=== PATIENT | female | born 1985 | race American Indian/Alaskan Native ===

== ENCOUNTER 2017-06-03 14:45 | Emergency (ER) | payer MEDICARE ==
[2017-06-03 15:07] VITALS: BP 133/91
--- NOTE | 2017-06-03 16:51 | Emergency Department Report ---
HPI - General Chief Complaint: Dental/Oral Time Seen by Provider: 06/03/17 16:43 - HPI HPI: This is a 31-year-old female here complaining of right upper back tooth pain 8 on a 10 that is throbbing and achy. Denies any facial swelling. Over-the- counter pain medication does not help. Denies any fever or chills. Denies any sore throat, difficulty swallowing, drooling or cyanosis. Patient says she has an appointment at a dental clinic on June 28 in [place] but she just couldn' t wait. Taking [id number] medication for pain that helped a little but doesn't take pain away. Pain worse with eating . Denies any nasal congestion, coughing or shortness of breath. ED Past Medical Hx - Past Medical History Previous Medical History?: Yes Hx Psychiatric Treatment: Yes (schizophrenia) - Surgical History Past Surgical History?: Yes Additional Surgical History: Left ankle surgery - Family History Family history: hypertension - Social History Smoking Status: Current Some Day Smoker Substance Use Type: Alcohol, Marijuana, Prescribed - Medications Home Medications: Home Medications Medication Instructions Recorded Confirmed Last Taken Type Benztropine [Cogentin] 1 mg PO HS 06/19/13 06/19/13 06/18/13 History Haloperidol [Haldol] 5 mg PO HS 06/19/13 06/19/13 06/19/13 History Ziprasidone [Geodon] 20 mg PO HS 06/19/13 06/19/13 06/18/13 History carBAMazepine [TEGretol] 200 mg PO HS 06/19/13 06/19/13 06/19/13 History LORazepam [Ativan] 1 mg PO TID PRN #5 tablet 06/20/13 Unknown Rx Acetaminophen/Codeine [Tylenol 1 tab PO Q6H PRN #12 tab 06/03/17 Unknown Rx /Codeine # 3 tab] Ibuprofen [Motrin] 600 mg PO Q8H PRN #15 tablet 06/03/17 Unknown Rx Penicillin V Potassium 500 mg PO Q8H 10 Days #30 tablet 06/03/17 Unknown Rx ED Review of Systems ROS: Stated complaint: TOOTHACHE Other details as noted in HPI Comment: All other systems reviewed and negative Constitutional: no symptoms reported Eyes: denies: eye pain, eye discharge ENT: dental pain. denies: ear pain, throat pain, epistaxis, congestion Respiratory: no symptoms reported Cardiovascular: denies: chest pain, palpitations, dyspnea on exertion, edema, syncope, paroxysmal nocturnal dyspnea Gastrointestinal: denies: abdominal pain, nausea, vomiting, diarrhea, constipation, hematemesis, melena, hematochezia Musculoskeletal: denies: back pain, joint swelling, arthralgia, myalgia Skin: denies: rash Neurological: denies: headache Physical Exam - Physical Exam Vital Signs: Vital Signs 06/03/17 15:04 Temperature 98.7 F Pulse Rate 113 H Respiratory 20 Rate Blood Pressure 133/91 O2 Sat by Pulse 95 Oximetry Vital Signs 06/03/17 06/03/17 15:04 17:14 Temperature 98.7 F Pulse Rate 113 H 98 H Respiratory 20 Rate Blood Pressure 133/91 O2 Sat by Pulse 95 Oximetry General: This is a 31-year-old female well-nourished well-developed distress. Physical Exam: Head: Normocephalic atraumatic Ears:BIateral TM pearly emerson. Red EAC with normal exam. No mastoid bone tenderness. Mouth: Moist, no pharyngeal erythema or exudate . No tonsillar erythema or exudate. UVULA midline and oral airways patent. No peritonsillar abscess. Mild gingivitis with some dental caries. #1 tooth with whole without any pulp exposure. Positive tenderness or surrounding tooth #1 without any swelling. Neck: Nontender to palpate, supple, normal range of motion. No adenopathy. No c- spine tenderness. Nose: Bilateral nasal mucosa normal. Maxillary and frontal sinuses non-tender to palpate. Eyes: Bilateral Sclerae and conjunctiva without injection. Bilateral pupils equal and reactive to light. Bilateral lids are normal. Normal accommodation.BEOMI Lungs: Clear to auscultate bilaterally, no rhonchi wheezes or rales. Normal work of breathing and no chest wall tenderness CV: S1, S2. Regular rate and rhythm negative murmur. Capillary refill is less than 3 seconds Skin: Clean dry and intact, no rashes or lesions Psych: Normal mood and behavior ED Course Vital Signs 06/03/17 15:04 Temperature 98.7 F Pulse Rate 113 H Respiratory 20 Rate Blood Pressure 133/91 O2 Sat by Pulse 95 Oximetry Vital Signs 06/03/17 06/03/17 15:04 17:14 Temperature 98.7 F Pulse Rate 113 H 98 H Respiratory 20 Rate Blood Pressure 133/91 O2 Sat by Pulse 95 Oximetry - Reevaluation(s) Reevaluation #1: 06/03/17 17:21 Patient received Motrin 800 mg emergency room for pain. ED Medical Decision Making - Medical Decision Making ED course: She here complaining of toothache to the right upper back tooth and she says she has a dental appointment in June but her pain is worse today and not working with [id number] pain medication. Physical findings for dental caries, hold to tooth #1 with out any pulp exposure, cavities and gingivitis. I discussed the patient diagnosis and treatment plan and she voiced understanding. I discussed with her that she needs to call [facility] dental clinic in the morning to schedule an appointment since she cannot get in with her dentist for one month. Patient was given Motrin 8 mg by mouth 1 and discharged home with prescription for Tylenol 3, Motrin and penicillin V. Critical care attestation.: If time is entered above; I have spent that time in minutes in the direct care of this critically ill patient, excluding procedure time. ED Disposition Clinical Impression: Toothache, Gingivitis, acute, Dental caries Disposition: [id number] TO HOME OR SELFCARE Is pt being admited?: No Does the pt Need Aspirin: No Condition: Stable Instructions: Gingivitis (ED), Dental Caries (ED), Toothache (ED) Additional Instructions: Please do not drive or operate heavy machinery while taking Tylenol No. 3 as this medication causes drowsiness If he cannot get in with your dentist this week, please see referral to [facility] dental clinic .please call and schedule an appointment for follow-up visit for later this week. Take penicillin V for infection. Prescriptions: Acetaminophen/Codeine [Tylenol /Codeine # 3 tab] 1 tab PO Q6H PRN #12 tab PRN Reason: Pain, Moderate (4-6) Ibuprofen [Motrin] 600 mg PO Q8H PRN #15 tablet PRN Reason: Pain Penicillin V Potassium 500 mg PO Q8H 10 Days #30 tablet Referrals: [facility] [Outside] - 2-[address] [facility] [place] [Outside] - 2-3 Days Forms: Work/School Release Form(ED)
[2017-06-03] MEDS ORDERED: MOTRIN ONE (17:13)
[2017-06-03] MEDS ORDERED: MOTRIN PO ONE (17:14)
== END 2017-06-03 17:35 | disposition home or self-care (01) ==
LOC: ED 14:45
DX: K02.9 Dental caries, unspecified (principal); K08.89 Other specified disorders of teeth and supporting structures; K05.10 Chronic gingivitis, plaque induced; F20.9 Schizophrenia, unspecified; F17.200 Nicotine dependence, unspecified, uncomplicated; F12.10 Cannabis abuse, uncomplicated
CPT/HCPCS: 99282